=== PATIENT | male | born 1995 | race Caucasian/White ===

== ENCOUNTER 2024-01-27 19:45 | Emergency (ER) | payer OTHER, SELFPAY ==
[2024-01-27 19:54] VITALS: BP 132/84; PULSE 105; TEMP 37; O2SAT 99; BMI 24.3
== END 2024-01-27 20:07 | disposition left against medical advice (07) ==
LOC: ER 19:52
PROVIDERS: Emergency Provider Emergency Medicine
DX: Z53.21 Procedure and treatment not carried out due to patient leaving prior to being seen by health care provider (principal)
CPT/HCPCS: 99283